=== PATIENT | male | born 1995 | race African-American/Black ===

== ENCOUNTER 2019-04-21 09:50 | Emergency (ER) | payer BC ==
[2019-04-21 10:00] VITALS: BP 159/85
[2019-04-21] MEDS ORDERED: KETOROLAC 60 MG/2 ML VIAL. IM ONE (10:30)
[2019-04-21] MEDS ORDERED: PRED50TA PO (10:34)
--- NOTE | 2019-04-21 11:01 | RAD ---
Exam performed: X-ray lumbar spine and right hip. HISTORY: Lower back pain 2 weeks after injury, pain radiating down right leg. DATE OF SERVICE: 04/21/2019. COMPARISON: None available FINDINGS: AP and frog-leg lateral view of the right hip are obtained. Normal alignment of the hip joint is preserved. There is no acute fracture or dislocation. No soft tissue swelling or foreign body seen. AP, lateral and cone view of the lumbosacral junction is obtained. 5 nonrib-bearing vertebral bodies identified. The vertebral body heights and intervertebral disc spaces are maintained. There is no juani or retrolisthesis. No compression fracture. No prevertebral soft tissue swelling is identified. Nonspecific bowel gas pattern seen. IMPRESSION: Negative x-ray right hip. No acute abnormality seen in the x-ray lumbosacral spine. Electronically signed by: Pam Dinero MD (04/21/2019 10:59 AM) [facility]
[2019-04-21 11:11] LABS: BILIRUBIN,URINE NEGATIVE (NEG); CLARITY,URINE CLEAR; COLOR,URINE YELLOW; NITRITE,URINE NEGATIVE (NEG); PH,URINE 5.5; PROTEIN,URINE 30 mg/dL (NEG-TRACE); UROBILINOGEN,URINE 0.2 mg/dL (0.2 mg/dL)
[2019-04-21 11:24] LABS: HYALINE CASTS, URINE FEW /HPF; SQUAMOUS EPITHELIAL CELL,UR OCC /LPF
[2019-04-21 11:25] LABS: BACTERIA,URINE 0 /HPF (0-FEW)
[2019-04-21] MEDS ORDERED: SULF1TAB24 PO (11:37)
[2019-04-21] MEDS ORDERED: AZITHROMYCIN 250 MG TABLET. ONE (11:44)
[2019-04-21] MEDS ORDERED: AZITHROMYCIN 250 MG TABLET. PO ONE (11:45)
[2019-04-21] MEDS ORDERED: cefTRIAXone IM 250 MG VIAL IM ONE (11:45)
--- NOTE | 2019-04-21 11:59 | PHYS DOC ---
Past Medical History Past Medical History: No Pertinent History Past Surgical History: Other Additional Past Surgical Histo: r elbow Alcohol Use: None Adult General Chief Complaint Chief Complaint: LOWER BACK PAIN OR INJURY HPI HPI Patient is a 23 year old male with chief complaint of back pain. Started 2 weeks ago he was playing basketball he landed on his right hip there was no bed with the but that he woke up with next day with mid low back pain radiates intermittently to the shins left greater than right. No bowel or bladder incontinence no problems urinating no pain no burning or frequency no cell anesthesia no numbness in the legs. No fever symptoms are intermittent in nature worsening with time however using conservative management with minimal relief he does play football at [facility] Current Medications Current Medications Current Medications Medications (Trade) Dose Ordered Sig/Lamberto Start Time Stop Time Status Last Admin Dose Admin Azithromycin (Zithromax) 250 mg STK-MED ONCE 04/21/19 11:44 04/21/19 11:44 DC Ceftriaxone Sodium (Rocephin Im) 250 mg 1X ONCE 04/21/19 11:45 04/21/19 11:46 DC 04/21/19 11:45 250 MG Ketorolac Tromethamine (Toradol Im) 30 mg 1X ONCE 04/21/19 10:30 04/21/19 10:35 DC 04/21/19 10:39 30 MG Allergies Allergies Allergies Coded Allergies Type Severity Reaction Last Updated Verified No Known Drug Allergies 04/21/19 No Physical Exam Physical Exam Constitutional: Well developed, well nourished, no acute distress, non-toxic appearance. [] HENT: Normocephalic, atraumatic, bilateral external ears normal, oropharynx moist, no oral exudates, nose normal. [] Eyes: PERRLA, EOMI, conjunctiva normal, no discharge. [] Neck: Normal range of motion, no tenderness, supple, no stridor. [] Pulmonary: Normal respiratory effort no increased work of breathing no obvious chest wall trauma Abdomen: Bowel sounds normal, soft, no tenderness, no masses, no pulsatile masses. [] Skin: Warm, dry, no erythema, no rash. [] Back: Tenderness to palpation bilateral paraspinous mild to moderate and also some mild tenderness over the right greater trochanter] Extremities: No tenderness, no cyanosis, no clubbing, ROM intact, no edema. [] Neurologic: Alert and oriented X 3, normal motor function, normal sensory function, no focal deficits noted. [] Psychologic: Affect normal, judgement normal, mood normal. [] Current Patient Data Vital Signs Vital Signs Date Time Temp Pulse Resp B/P (MAP) Pulse Ox O2 Delivery O2 Flow Rate FiO2 04/21/19 10:00 98.6 68 16 159/85 (109) 100 Room Air 98.6 Lab Values Laboratory Tests Test 04/21/19 11:00 Urine Collection Type Unknown Urine Color Yellow Urine Clarity Clear Urine pH 5.5 Urine Specific [place] >=1.030 Urine Protein 30 mg/dL (NEG-TRACE) Urine Glucose (UA) Negative mg/dL (NEG) Urine Ketones (Stick) Negative mg/dL (NEG) Urine Blood Small (NEG) Urine Nitrite Negative (NEG) Urine Bilirubin Negative (NEG) Urine Urobilinogen Dipstick 0.2 mg/dL (0.2 mg/dL) Urine Leukocyte Esterase Small (NEG) Urine RBC 1-2 /HPF (0-2) Urine WBC 11-20 /HPF (0-4) Urine Squamous Epithelial Cells Occ /LPF Urine Bacteria 0 /HPF (0-FEW) Urine Hyaline Casts Few /HPF Urine Mucus Mod /LPF EKG EKG [] Radiology/Procedures Radiology/Procedures [] Course & Med Decision Making Course & Med Decision Making Pertinent Labs and Imaging studies reviewed. (See chart for details) []We did do x-rays due to the patient's reported history of trauma although although it was mild trauma he's having persistent pain x-rays were negative. Recommend follow-up with primary doctor for consideration of MRI should the symptoms persist there is no evidence of cauda equina clinically or by physical exam Urinalysis was done did show some white blood cells in the urine. I spoke with him privately about the possibility of an STD cultures pending and antibiotics provided recommended safe sex in the interim Dragon Disclaimer Dragon Disclaimer This electronic medical record was generated, in whole or in part, using a voice recognition dictation system. Departure Departure Impression: Primary Impression: Back pain Disposition: HOME, SELF-CARE Condition: STABLE Patient Instructions: Back Pain, Adult, [id number] Scripts Sulfamethoxazole/Trimethoprim (BACTRIM DS TABLET) 1 Each Tablet 1 TAB PO BID for 7 Days, #14 TAB 0 Refills Prov: KEVYN BALTAZAR MD 04/21/19 Prednisone (PREDNISONE) 50 Mg Tablet 1 TAB PO DAILY, #5 TAB Prov: KEVYN BALTAZAR MD 04/21/19 KEVYN BALTAZAR MD Apr 21, 2019 11:59
== END 2019-04-21 11:45 | disposition home or self-care (01) ==
LOC: ER 09:50
DX: M54.5 Low back pain (principal); R00.2 Palpitations; M25.551 Pain in right hip; Z98.890 Other specified postprocedural states
CPT/HCPCS: 72100; 73502; 81001; 87086; 96372; 99285; J0696; J1885; Q0144